=== PATIENT | male | born 1980 | race Caucasian/White ===

== ENCOUNTER → 2018-12-13 09:07 | Outpatient (CLI) | payer OTHER, SELFPAY ==
[2018-12-13 10:19] LABS: Hematocrit 43.1 % (41-53); Hemoglobin 14.8 g/dL (13.5-17.5); Mean Corpuscular HGB Conc 34.4 % (30-36); Mean Corpuscular Hemoglobin 30.7 PG (26-34); Mean Corpuscular Volume 89.3 fL (80-100); Platelet Count 204 X10^3/uL (150-400); Red Blood Cell Count 4.83 X10^6/uL (4.5-5.9); White Blood Cell Count 5.9 X10^3/uL (4.5-11.0)
[2018-12-13 10:37] LABS: Alanine Aminotransferase 31 IU/L (21-72); Albumin 4.5 g/dL (3.5-5.0); Albumin Globulin Ratio 1.5 (1.0-2.8); Alkaline Phosphatase 49 U/L (38-126); Aspartate Aminotransferase 36 IU/L (17-59); BUN Creatinine Ratio 20.9 (6-22); Bilirubin Total 0.7 mg/dL (0.2-1.3); Blood Urea Nitrogen 23 mg/dL (9-20); Calcium 9.3 mg/dL (8.4-10.2); Carbon Dioxide 27 mmol/L (22-32); Chloride 105 mmol/L (98-107); Cholesterol 180 mg/dL (140-199); Estimated Glomerular Filt Rate > 60.0 mL/min (>60); Glucose 91 mg/dL (70-100); HDL Cholesterol 47 mg/dL (40-60); HEMOLYSIS < 15 (0-50); LDL Cholesterol Calculated 108 mg/dL (<100); Sodium 140 mmol/L (137-145); Total Protein 7.5 g/dL (6.3-8.2); Triglycerides 124 mg/dL (35-150)
[2018-12-13 11:16] LABS: TSH w/ Reflex to FT4 2.93 uIU/mL (0.47-4.68)
== END ==
PROVIDERS: Visit Provider Nurse Practitioner Family
DX: Z00.00 Encounter for general adult medical examination without abnormal findings (principal); E04.9 Nontoxic goiter, unspecified; Z13.6 Encounter for screening for cardiovascular disorders
CPT/HCPCS: 36415; 80053; 80061; 84443; 85027

== ENCOUNTER → 2019-11-13 10:43 | Outpatient (CLI) | payer OTHER, SELFPAY ==
--- NOTE | 2019-11-13 10:45 | DI.RAD.S_ITS ---
PROCEDURE: XR ANKLE RT MIN 3V INDICATIONS: swelling/pain s/p inversion injury/R/o fracture TECHNIQUE: 3 views of the ankle were acquired. COMPARISON: None. FINDINGS: Bones: No fractures or dislocations. Ankle mortise is normally aligned. No suspicious bony lesions. Soft tissues: Trace tibiotalar joint effusion. Achilles tendon appears normal. Mild swelling over the lateral malleolus. IMPRESSION: No acute osseous abnormality. Mild swelling over the lateral malleolus. Dictated by: Joel Akhtar M.D. on 11/13/2019 at 11:40 Approved by: Joel Akhtar M.D. on 11/13/2019 at 11:43
== END ==
PROVIDERS: PCP Nurse Practitioner Family; Referring Provider Nurse Practitioner Family; Visit Provider Nurse Practitioner Family
DX: M25.571 Pain in right ankle and joints of right foot (principal); M25.471 Effusion, right ankle
CPT/HCPCS: 73610

== ENCOUNTER → 2020-07-13 13:16 | Outpatient (ROUT) | payer OTHER, SELFPAY ==
[2020-07-13 14:50] LABS: Semen Sperm Prescence Post-Vas Present (ABSENT)
== END ==
PROVIDERS: PCP Nurse Practitioner Family; Visit Provider Specialist
DX: Z98.52 Vasectomy status (principal)
CPT/HCPCS: 89321

== ENCOUNTER → 2020-07-13 13:18 | Outpatient (CLI) | payer OTHER, SELFPAY ==
[2020-07-13 14:37] LABS: Hemoglobin 13.9 g/dL (13.5-17.5); Mean Corpuscular HGB Conc 34.8 % (30-36); Mean Corpuscular Hemoglobin 31.2 PG (26-34); Mean Corpuscular Volume 89.5 fL (80-100); Platelet Count 191 X10^3/uL (150-400); Red Blood Cell Count 4.47 X10^6/uL (4.5-5.9); Red Cell Distribution Width 13.1 % (11.6-14.8); White Blood Cell Count 6.2 X10^3/uL (4.5-11.0)
[2020-07-13 14:47] LABS: Alanine Aminotransferase 28 IU/L (<50); Albumin 4.5 g/dL (3.5-5.0); Albumin Globulin Ratio 1.9 (1.0-2.8); Alkaline Phosphatase 55 U/L (38-126); Aspartate Aminotransferase 30 IU/L (17-59); BUN Creatinine Ratio 19.3 (6-22); Bilirubin Total 0.4 mg/dL (0.2-1.3); Blood Urea Nitrogen 22 mg/dL (9-20); Calcium 9.6 mg/dL (8.4-10.2); Carbon Dioxide 27 mmol/L (22-32); Chloride 104 mmol/L (98-107); Estimated Glomerular Filt Rate > 60.0 mL/min (>60); Globulin 2.4 g/dL (1.7-4.1); Glucose 91 mg/dL (70-100); HEMOLYSIS < 15 (0-50); Sodium 139 mmol/L (137-145); Total Protein 6.9 g/dL (6.3-8.2)
[2020-07-13 15:11] LABS: TSH w/ Reflex to FT4 2.17 uIU/mL (0.47-4.68)
== END ==
PROVIDERS: PCP Nurse Practitioner Family; Referring Provider Nurse Practitioner Family; Visit Provider Nurse Practitioner Family
DX: Z00.00 Encounter for general adult medical examination without abnormal findings (principal); E04.9 Nontoxic goiter, unspecified; Z98.52 Vasectomy status
CPT/HCPCS: 36415; 80053; 84443; 85027; 89321

== ENCOUNTER → 2020-08-17 14:13 | Outpatient (ROUT) | payer OTHER, SELFPAY ==
[2020-08-17 14:20] LABS: Semen Sperm Prescence Post-Vas Absent (ABSENT)
== END ==
PROVIDERS: PCP Nurse Practitioner Family; Visit Provider Specialist
DX: Z98.52 Vasectomy status (principal)
CPT/HCPCS: 89321

== ENCOUNTER → 2021-04-29 13:33 | Outpatient (CLI) | payer OTHER, SELFPAY ==
[2021-04-29 14:45] LABS: COVID19 -Nasal RAPID POSITIVE (Negative)
== END ==
PROVIDERS: PCP Nurse Practitioner Family; Referring Provider Nurse Practitioner Family; Visit Provider Nurse Practitioner Family
DX: U07.1 COVID-19 (principal); Z20.822 Contact with and (suspected) exposure to COVID-19
CPT/HCPCS: 87635

== ENCOUNTER → 2021-12-29 16:44 | Outpatient (CLI) | payer OTHER, SELFPAY ==
[2021-12-30 11:18] LABS: Urine N gonorrhoeae NOT DETECTED
[2021-12-30 12:05] LABS: Urine Chlamydia NOT DETECTED
== END ==
PROVIDERS: PCP Nurse Practitioner Family; Visit Provider Nurse Practitioner Family
DX: Z11.3 Encounter for screening for infections with a predominantly sexual mode of transmission (principal); Z72.51 High risk heterosexual behavior
CPT/HCPCS: 87491; 87591

== ENCOUNTER → 2021-12-29 17:25 | Outpatient (CLI) | payer OTHER, SELFPAY ==
[2021-12-30 16:44] LABS: Hepatitis B Surface Antigen NEGATIVE s/c (NEGATIVE)
[2021-12-30 17:08] LABS: HIV 1 & 2 Ab/Ag 4th Gen Combo NEGATIVE (NEGATIVE); Hep C Virus Ab w/Reflex Quant NEGATIVE s/c (NEGATIVE)
[2021-12-31 00:54] LABS: HSV 2 IGG AB < 0.91 index (0.00-0.90); HSV1IGG < 0.91 index (0.00-0.90)
[2021-12-31 04:55] LABS: RPR Screen Non Reactive (Non Reactive)
[2022-01-01 22:00] LABS: HSV I/II IgM <0.91 Ratio (0.00-0.90)
== END ==
PROVIDERS: Nurse Practitioner Family; PCP Nurse Practitioner Family; Referring Provider Nurse Practitioner Family; Visit Provider Nurse Practitioner Family
DX: Z00.00 Encounter for general adult medical examination without abnormal findings (principal); Z72.51 High risk heterosexual behavior; Z11.3 Encounter for screening for infections with a predominantly sexual mode of transmission
CPT/HCPCS: 36415; 86592; 86694; 86695; 86696; 86803; 87340; 87389; 87491; 87591

== ENCOUNTER → 2022-05-23 09:35 | Outpatient (CLI) | payer OTHER, SELFPAY ==
[2022-05-23 10:14] LABS: Hematocrit 47.9 % (41-53); Hemoglobin 16.6 g/dL (13.5-17.5)
[2022-05-23 10:58] LABS: Presystolic 136; Pulse 68
[2022-05-23 10:59] LABS: Prediastolic 74; Temperature 98.5
[2022-05-23 11:01] LABS: Amount Collected in g 501; Dizziness N; Postdiastolic BP 81; Postsystolic BP 129; Swelling N; Therapeutic Phleb Comment Y
== END ==
PROVIDERS: Referring Provider General Practice; Visit Provider General Practice
DX: E83.118 Other hemochromatosis (principal)
CPT/HCPCS: 36415; 85014; 85018; 99195

== ENCOUNTER → 2022-07-01 08:33 | Outpatient (CLI) | payer OTHER, SELFPAY ==
[2022-07-01 09:25] LABS: Add Manual Diff / Slide Review SLIDE REVIEW; Basophils Absolute Auto 0 /uL (0-100); Basophils Percent Auto 0.6 % (0-2); Eosinophils Absolute Auto 200 /uL (0-450); Eosinophils Percent Auto 2.1 % (2-4); Hematocrit 47.8 % (41-53); Hemoglobin 16.8 g/dL (13.5-17.5); Lymphocytes Absolute Auto 1500 /uL (1100-4500); Lymphocytes Percent Auto 19.8 % (25-40); Mean Corpuscular HGB Conc 35.2 % (30-36); Mean Corpuscular Hemoglobin 31.2 PG (26-34); Mean Corpuscular Volume 88.6 fL (80-100); Monocytes Absolute Auto 700 /uL (0-900); Neutrophils Absolute Auto 5000 /uL (1500-7000); Neutrophils Percent Auto 67.5 % (50-75); Platelet Count 171 X10^3/uL (150-400); White Blood Cell Count 7.4 X10^3/uL (4.5-11.0)
[2022-07-01 09:53] LABS: RBC Morphology Normal Morphology
[2022-07-01 12:15] LABS: Alanine Aminotransferase 28 IU/L (<50); Albumin 4.4 g/dL (3.5-5.0); Albumin Globulin Ratio 1.6 (1.0-2.8); Alkaline Phosphatase 45 U/L (38-126); Aspartate Aminotransferase 30 IU/L (17-59); BUN Creatinine Ratio 13.4 (6-22); Bilirubin Total 0.5 mg/dL (0.2-1.3); Blood Urea Nitrogen 16 mg/dL (9-20); Calcium 9.1 mg/dL (8.4-10.2); Carbon Dioxide 29 mmol/L (22-32); Chloride 102 mmol/L (98-107); Cholesterol 178 mg/dL (140-199); Estimated Glomerular Filt Rate > 60 mL/min (>60); Globulin 2.7 g/dL (1.7-4.1); Glucose 81 mg/dL (70-100); HDL Cholesterol 40 mg/dL (40-60); HEMOLYSIS < 15 (0-50); LDL Cholesterol Calculated 118 mg/dL (<100); Potassium 4.1 mmol/L (3.4-5.1); Sodium 140 mmol/L (137-145); Total Protein 7.1 g/dL (6.3-8.2); Triglycerides 99 mg/dL (35-150)
[2022-07-01 12:21] LABS: Free T4, Direct Thyroxine 1.05 ng/dL (0.78-2.19)
[2022-07-01 12:35] LABS: Thyroid Stimulating Hormone 6.51 uIU/mL (0.47-4.68)
== END ==
PROVIDERS: PCP Family Medicine; Referring Provider Family Medicine; Visit Provider Family Medicine
DX: Z13.29 Encounter for screening for other suspected endocrine disorder (principal); E04.9 Nontoxic goiter, unspecified; Z13.6 Encounter for screening for cardiovascular disorders; Z13.9 Encounter for screening, unspecified
CPT/HCPCS: 36415; 80053; 80061; 84439; 84443; 85025

== ENCOUNTER → 2022-11-02 15:24 | Outpatient (CLI) | payer OTHER, SELFPAY ==
[2022-11-02 17:05] LABS: HEMOLYSIS < 15 (0-50); Iron 85 ug/dL (49-181)
[2022-11-02 17:06] LABS: Basophils Absolute Auto 0 /uL (0-100); Basophils Percent Auto 0.5 % (0-2); Eosinophils Absolute Auto 200 /uL (0-450); Eosinophils Percent Auto 2.4 % (2-4); Hemoglobin 16.6 g/dL (13.5-17.5); Lymphocytes Absolute Auto 1500 /uL (1100-4500); Lymphocytes Percent Auto 23.1 % (25-40); Mean Corpuscular HGB Conc 35.4 % (30-36); Mean Corpuscular Hemoglobin 31.4 PG (26-34); Mean Corpuscular Volume 88.8 fL (80-100); Monocytes Absolute Auto 700 /uL (0-900); Monocytes Percent Auto 10.7 % (3-14); Neutrophils Absolute Auto 4000 /uL (1500-7000); Neutrophils Percent Auto 63.3 % (50-75); Red Blood Cell Count 5.29 X10^6/uL (4.5-5.9); Red Cell Distribution Width 13.3 % (11.6-14.8); White Blood Cell Count 6.4 X10^3/uL (4.5-11.0)
[2022-11-02 17:08] LABS: Alanine Aminotransferase 52 IU/L (<50); Albumin 4.3 g/dL (3.5-5.0); Albumin Globulin Ratio 1.5 (1.0-2.8); Alkaline Phosphatase 49 U/L (38-126); Aspartate Aminotransferase 41 IU/L (17-59); BUN Creatinine Ratio 15.6 (6-22); Bilirubin Total 0.5 mg/dL (0.2-1.3); Blood Urea Nitrogen 19 mg/dL (9-20); Carbon Dioxide 27 mmol/L (22-32); Chloride 102 mmol/L (98-107); Estimated Glomerular Filt Rate > 60 mL/min (>60); Globulin 2.9 g/dL (1.7-4.1); Glucose 103 mg/dL (70-100); HEMOLYSIS < 15 (0-50); Potassium 3.7 mmol/L (3.4-5.1); Sodium 137 mmol/L (137-145); Total Protein 7.2 g/dL (6.3-8.2)
[2022-11-02 17:21] LABS: Percent Iron Saturation 25 % (20-50); Total Iron Binding Capacity 346 ug/dL (261-462); Transferrin 252 mg/dL (206-381)
[2022-11-02 17:39] LABS: Add Manual Diff / Slide Review SLIDE REVIEW; Prostate Specific Antigen 0.861 ng/mL (0.10-4.00)
[2022-11-02 17:41] LABS: RBC Morphology Normal Morphology
[2022-11-02 17:42] LABS: Platelet Count 174 X10^3/uL (150-400)
== END ==
PROVIDERS: PCP Family Medicine; Referring Provider Family Medicine; Visit Provider Family Medicine
DX: Z00.00 Encounter for general adult medical examination without abnormal findings (principal); D75.1 Secondary polycythemia; E34.9 Endocrine disorder, unspecified
CPT/HCPCS: 36415; 80053; 83540; 83550; 84153; 85025

== ENCOUNTER → 2023-01-02 14:05 | Outpatient (CLI) | payer OTHER, SELFPAY ==
[2023-01-02 14:58] LABS: Free T4, Direct Thyroxine 1.25 ng/dL (0.78-2.19)
[2023-01-02 15:12] LABS: Thyroid Stimulating Hormone 1.63 uIU/mL (0.47-4.68)
== END ==
PROVIDERS: PCP Family Medicine; Referring Provider Family Medicine; Visit Provider Family Medicine
DX: E03.9 Hypothyroidism, unspecified (principal)
CPT/HCPCS: 36415; 84439; 84443

== ENCOUNTER → 2023-01-03 16:53 | Outpatient (CLI) | payer OTHER, SELFPAY ==
[2023-01-03 17:26] LABS: Add Manual Diff / Slide Review NO; Basophils Absolute Auto 100 /uL (0-100); Basophils Percent Auto 0.6 % (0-2); Eosinophils Absolute Auto 100 /uL (0-450); Eosinophils Percent Auto 1.5 % (2-4); Hematocrit 46.7 % (41-53); Hemoglobin 16.4 g/dL (13.5-17.5); Lymphocytes Absolute Auto 1700 /uL (1100-4500); Lymphocytes Percent Auto 17.8 % (25-40); Mean Corpuscular HGB Conc 35.2 % (30-36); Mean Corpuscular Hemoglobin 31.5 PG (26-34); Mean Corpuscular Volume 89.7 fL (80-100); Monocytes Absolute Auto 700 /uL (0-900); Monocytes Percent Auto 7.3 % (3-14); Neutrophils Absolute Auto 6900 /uL (1500-7000); Neutrophils Percent Auto 72.8 % (50-75); Platelet Count 186 X10^3/uL (150-400); Red Cell Distribution Width 13.7 % (11.6-14.8); White Blood Cell Count 9.5 X10^3/uL (4.5-11.0)
[2023-01-03 17:41] LABS: Alanine Aminotransferase 38 IU/L (<50); Albumin 4.4 g/dL (3.5-5.0); Albumin Globulin Ratio 1.5 (1.0-2.8); Alkaline Phosphatase 47 U/L (38-126); Aspartate Aminotransferase 39 IU/L (17-59); Bilirubin Total 0.7 mg/dL (0.2-1.3); Blood Urea Nitrogen 20 mg/dL (9-20); Calcium 9.5 mg/dL (8.4-10.2); Carbon Dioxide 25 mmol/L (22-32); Chloride 104 mmol/L (98-107); Estimated Glomerular Filt Rate > 60 mL/min (>60); Globulin 2.9 g/dL (1.7-4.1); Glucose 123 mg/dL (70-100); HEMOLYSIS 28 (0-50); Potassium 3.8 mmol/L (3.4-5.1); Sodium 138 mmol/L (137-145); Total Protein 7.3 g/dL (6.3-8.2)
[2023-01-03 17:43] LABS: Hemoglobin A1C% w Est Avg Glu 4.4 % (4.0-6.0)
[2023-01-03 18:00] LABS: Free T4, Direct Thyroxine 1.27 ng/dL (0.78-2.19)
[2023-01-03 18:12] LABS: Prostate Specific Antigen 1.06 ng/mL (0.10-4.00)
[2023-01-09 10:08] LABS: Percent Free Testosterone 3.95 % (1.50-4.20); Testosterone Free 29.63 ng/dL (5.00-21.00)
== END ==
PROVIDERS: PCP Family Medicine; Referring Provider Family Medicine; Visit Provider Family Medicine
DX: D57.1 Sickle-cell disease without crisis (principal); E83.119 Hemochromatosis, unspecified; E34.9 Endocrine disorder, unspecified; E03.9 Hypothyroidism, unspecified
CPT/HCPCS: 36415; 80053; 83036; 84153; 84402; 84403; 84439; 84443; 85025

== ENCOUNTER → 2023-01-06 08:24 | Outpatient (CLI) | payer OTHER, SELFPAY ==
--- NOTE | 2023-01-06 09:30 | DI.CT.S_ITS ---
PROCEDURE: CT ABDOMEN PELVIS WO CON INDICATIONS: Evaluate assess umbilical hernia and potential extension TECHNIQUE: Noncontrast 5 mm thick sections acquired from the diaphragms to the symphysis. 5 mm coronal and sagittal reformats were then performed. For radiation dose reduction, the following was used: automated exposure control, adjustment of mA and/or kV according to patient size. COMPARISON: None. FINDINGS: Image quality: Excellent. ABDOMEN: Lung bases: Lung bases are clear. Heart size is normal. Solid organs: Liver is normal in size. Gallbladder is unremarkable . Pancreas is normal in contours. Spleen is normal in size. No adrenal nodules. Kidneys are normal in size, without hydronephrosis or nephrolithiasis. Peritoneum and bowel: Unenhanced bowel loops demonstrate normal wall thickness and caliber. No free fluid or air. Nodes and vessels: No retroperitoneal or mesenteric adenopathy by size criteria. Aorta and inferior vena cava are normal in caliber. Miscellaneous: Fat containing umbilical hernia. The neck measures 1.7 centimeters. The sac measures 2.0 x 2.5 centimeters. PELVIS: Genitourinary: Bladder wall thickness is normal. Miscellaneous: No inguinal hernias or adenopathy. Bones: No suspicious bony lesions. No vertebral body compression fractures. IMPRESSION: Fat containing umbilical hernia. The neck measures 1.7 centimeters. The sac measures 2.0 x 2.5 centimeters. No additional hernia is present, and may be reduced. Dictated by: Ramana Baires M.D. on 01/06/2023 at 9:43 Approved by: Ramana Baires M.D. on 01/06/2023 at 9:51
== END ==
PROVIDERS: PCP Family Medicine; Referring Provider Family Medicine; Visit Provider Family Medicine
DX: K42.9 Umbilical hernia without obstruction or gangrene (principal)
CPT/HCPCS: 74176

== ENCOUNTER 2023-03-15 08:18 | Day surgery (SDC) | payer OTHER, SELFPAY ==
[2023-03-13 13:37] VITALS: BMI 28.2
[2023-03-15] VITALS (10 sets, daily range): BP systolic 129–164; BP diastolic 81–103; PULSE 76–93; RESP 10–16; TEMP 36.6–36.8; O2SAT 97–99; BMI 28.2
[2023-03-15] MEDS: LACTATED RINGERS 1,000 ML 42 ML IV ×2 (08:46→11:18)
--- NOTE | 2023-03-15 09:42 | P.HP_ITS ---
History of Present Illness History of Present Illness Date Patient Seen: 03/15/23 Chief complaint: Hernia Repair - Umbilical Narrative: 43M with a symptomatic umbilical hernia here for elective repair. No interval change in health please refer to H&P from January for further detail. [facility] Medical History (Updated 03/13/23 @ 13:38 by Nora Concepcion RN) Former smoker GERD (gastroesophageal reflux disease) Hemochromatosis Polycythemia Hypotestosteronism Hypothyroidism Encounter for wellness examination in adult (07/29/20) Sterilization consult Gluten intolerance Witnessed apneic spells Surgical History Anesthesia History of tonsillectomy Family History Sister Celiac disease Sister Fibromyalgia Grandfather Cancer Grandmother Alzheimer's disease Grandmother Colon cancer Social History marital status: number of children: 3 household members: children occupational status: employed Smoking Status: Former smoker Tobacco: How many years used: 10 second hand exposure: No alcohol intake: current substance use type: does not use caffeine: Yes Meds Home Medications and Allergies Home Medications Medication Instructions Recorded Confirmed Type anastrozole 1 mg tablet 0.25 mg PO 2XW 07/05/22 03/15/23 History levothyroxine 50 mcg capsule 50 mcg PO DAILY #90 caps 01/09/23 03/15/23 Rx boron citrate 3 mg tablet 3 mg PO DAILY 03/13/23 03/15/23 History cholecalciferol (vitamin D3) 125 250 mcg PO DAILY 03/13/23 03/15/23 History mcg (5,000 unit) tablet (Vitamin D3) iodine 150 mcg tablet 1,000 mcg PO DAILY 03/13/23 03/15/23 History multivitamin with minerals-folic 2 tab PO DAILY 03/13/23 03/15/23 History acid 200 mcg chewable tablet (Multivitamin Gummies) testosterone cypionate 200 mg/mL 100 mg IM Q2W 03/13/23 03/15/23 History intramuscular kit vitamin K2 100 mcg capsule 100 mcg PO DAILY 03/13/23 03/15/23 History gonadorelin acetate 0.8 mg 0.8 mg DAILY 03/15/23 03/15/23 History injection kit Allergies Allergy/AdvReac Type Severity Reaction Status Date / Time No Known Drug Allergies Allergy Verified 02/09/23 15:04 Exam Vital Signs (past 8 hours): - 03/15/23 08:23 Temperature 97.9 F Pulse Rate 78 Respiratory Rate 16 Blood Pressure 129/81 Pulse Oximetry 99 Oxygen Delivery Method Room Air Oxygen Delivery Method Room Air Narrative Exam Narrative: Gen-Adult man alert and oriented. Abdomen-Reducible umbilcial hernia Assessment & Plan Assessment & Plan narrative: 43M with a symptomatic umbilical hernia here for elective repair. Overview of operation discussed. Major operative risks again reviewed including hemorrhage, infection reoccurence. He provides written and verbal consent to proceed.
[2023-03-15] MEDS: CEFAZOLIN 2 GM/100 ML PREMIX 100 ML IV (10:00)
--- NOTE | 2023-03-15 10:09 | SUR.OPER ---
Supine on padded OR bed, head on pillow, arms secured on padded arm boards at <90 degrees abduction, legs uncrossed, safety belt at thigh, tape over blanket over lower legs.
[2023-03-15] MEDS: BUPIVACAINE 0.25% (PF) VIAL 30 ML INJ (10:20)
[2023-03-15] MEDS: ACETAMINOPHEN 325 MG TABLET 975 MG PO (11:17)
[2023-03-15] MEDS: OXYCODONE IR 5 MG TABLET PO ×2 (11:17→11:42)
--- NOTE | 2023-03-15 11:26 | P.OP_ITS ---
Operative Date/Time/Diagnoses Date of procedure: 03/15/23 Time of procedure: 11:26 Pre-op diagnosis: umbilical hernia Post-op diagnosis: same Procedure & Clinicians Procedure: Umbilical hernia repair Same procedure as scheduled: Yes Indications: Symptomatic reducible umbilical hernia Surgeon: Sterling Godoy Click Yes if Unassisted: No Anesthesia Type: General Operative Notes Findings: 3 cm fascial defect containing viable omentum Specimen(s): none sent Estimated Blood Loss (mL): 40 Procedure in detail: Patient was brought to the operating room placed supine on the table. Bilateral lower extremity compression devices were applied. General anesthesia was induced and they were intubated with an endotracheal tube. They received 2 g of Ancef prior to skin incision. They were prepped and draped in sterile fashion. A time-out was performed. A curvilinear incision was made inferior to the u mbilicus. The subcutaneous tissues were divided. The umbilical hernia was identified and the hernia sac was dissected off the umbilical skin and circumferentially off of the fascia defect. The hernia sac was sharply opened and contained viable omentum. The omentum was reduced back into the abdomen. Using blunt dissection I carefully carefully freed the hernia sac from beneath the fascia defect in order to accomodate the mesh. The fascia defect was 3cm in maximal diameter. A Bard Ventralex ST hernia patch 6.4 cm was inserted beneath the fascia defect and above the peritoneum in a sublay position. The mesh was anchored in multiple locations using Ethibond suture to the fascia and the fascial defect was closed over the mesh. The umbilical skin was tacked to the subcutaneous tissues and then the remainder of the subcutaneous tissues were reapproximated using 3 0 Vicry,l skin closed with 4 0 Monocryl followed by the application of Dermabond and Steri-Strips. Sponge instrument count at the end of the operation was correct. Patient tolerated procedure well was extubated and transferred to postoperative care unit in stable condition. Complications: none Post-operative Condition: stable Disposition: same day surgery
[2023-03-15] MEDS: HYDROMORPHONE 1 MG INJ IV ×2 (11:30→11:35)
[2023-03-15] MEDS: ONDANSETRON 4 MG/2 ML INJ IV (11:42)
== END 2023-03-15 12:26 | disposition home or self-care (01) ==
PROVIDERS: PCP Family Medicine; Referring Provider Surgery; Visit Provider Surgery
PROC: (CPT 49593; principal; 2023-03-15 09:45)
DX: K42.9 Umbilical hernia without obstruction or gangrene (principal)
CPT/HCPCS: 49593; J0690; J1100; J1170; J1885; J2250; J2405; J3010

== ENCOUNTER → 2023-08-22 06:45 | Outpatient (CLI) | payer OTHER, SELFPAY ==
[2023-08-22 08:02] LABS: Add Manual Diff / Slide Review NO; Basophils Absolute Auto 0 /uL (0-100); Basophils Percent Auto 0.9 % (0-2); Eosinophils Absolute Auto 300 /uL (0-450); Eosinophils Percent Auto 5.8 % (2-4); Hematocrit 47.8 % (41-53); Hemoglobin 16.7 g/dL (13.5-17.5); Lymphocytes Absolute Auto 1400 /uL (1100-4500); Lymphocytes Percent Auto 24.6 % (25-40); Mean Corpuscular HGB Conc 34.8 % (30-36); Mean Corpuscular Hemoglobin 31.5 PG (26-34); Mean Corpuscular Volume 90.3 fL (80-100); Monocytes Absolute Auto 400 /uL (0-900); Monocytes Percent Auto 7.3 % (3-14); Neutrophils Absolute Auto 3500 /uL (1500-7000); Neutrophils Percent Auto 61.4 % (50-75); Platelet Count 183 X10^3/uL (150-400); Red Cell Distribution Width 13.1 % (11.6-14.8); White Blood Cell Count 5.7 X10^3/uL (4.5-11.0)
[2023-08-22 08:04] LABS: Hemoglobin A1C% w Est Avg Glu 4.8 % (4.0-6.0)
[2023-08-22 08:27] LABS: Alanine Aminotransferase 45 IU/L (<50); Albumin 4.5 g/dL (3.5-5.0); Albumin Globulin Ratio 1.6 (1.0-2.8); Alkaline Phosphatase 57 U/L (38-126); Aspartate Aminotransferase 39 IU/L (17-59); BUN Creatinine Ratio 17.2 (6-22); Bilirubin Total 0.6 mg/dL (0.2-1.3); Blood Urea Nitrogen 22 mg/dL (9-20); Calcium 9.3 mg/dL (8.4-10.2); Carbon Dioxide 28 mmol/L (22-32); Chloride 104 mmol/L (98-107); Estimated Glomerular Filt Rate > 60 mL/min (>60); Globulin 2.9 g/dL (1.7-4.1); Glucose 96 mg/dL (70-100); HEMOLYSIS < 15 (0-50); Potassium 4.4 mmol/L (3.4-5.1); Sodium 139 mmol/L (137-145); Total Protein 7.4 g/dL (6.3-8.2)
[2023-08-22 08:38] LABS: Free T4, Direct Thyroxine 1.16 ng/dL (0.78-2.19)
[2023-08-22 08:52] LABS: Thyroid Stimulating Hormone 1.38 uIU/mL (0.47-4.68)
[2023-08-22 08:53] LABS: Prostate Specific Antigen 1.17 ng/mL (0.10-4.00)
== END ==
LOC: LAB 06:45
PROVIDERS: PCP Family Medicine; Referring Provider Family Medicine; Visit Provider Family Medicine
DX: E03.9 Hypothyroidism, unspecified (principal); E34.9 Endocrine disorder, unspecified; R73.9 Hyperglycemia, unspecified
CPT/HCPCS: 36415; 80053; 83036; 84153; 84402; 84403; 84439; 84443; 85025

== ENCOUNTER → 2023-11-29 10:48 | Outpatient (CLI) | payer OTHER, SELFPAY ==
--- NOTE | 2023-11-29 10:49 | DI.RAD.S_ITS ---
PROCEDURE: XR CHEST 2V INDICATIONS: Cough TECHNIQUE: 2 views of the chest were acquired. COMPARISON: None. FINDINGS: Surgical changes and devices: None. Lungs and pleura: Increased bronchovascular markings in bilateral hilar region are seen with mild bronchial wall thickening. No definite focal infiltrate. No pleural effusions or pneumothorax. Mediastinum: Mediastinal contours are normal. Heart size is normal. Bones and chest wall: No suspicious bony abnormalities. Soft tissues appear unremarkable. IMPRESSION: Finding is concerning for mild reactive airway disease such as bronchiolitis or viral illness. No definite focal infiltrate. No pleural effusion or pneumothorax. Dictated by: John Oden M.D. on 11/29/2023 at 16:28 Approved by: John Oden M.D. on 11/29/2023 at 16:29
== END ==
PROVIDERS: PCP Family Medicine; Referring Provider Nurse Practitioner Family; Visit Provider Nurse Practitioner Family
DX: R05.9 Cough, unspecified (principal)
CPT/HCPCS: 71046

== ENCOUNTER → 2024-04-29 07:34 | Outpatient (CLI) | payer BC, SELFPAY ==
[2024-04-29 09:06] LABS: COVID-19 CEPHEID 4-PLEX PCR Negative (Negative); Influenza A - CEPHEID Flu A NEGATIVE (NEGATIVE); Influenza B - CEPHEID Flu B NEGATIVE (NEGATIVE); Respiratory Syncytial Virus Negative (Negative)
== END ==
PROVIDERS: PCP Family Medicine; Referring Provider Registered Nurse; Visit Provider Registered Nurse
DX: R05.1 Acute cough (principal)
CPT/HCPCS: 0241U; 87070

== ENCOUNTER → 2024-06-12 12:38 | Outpatient (CLI) | payer BC, SELFPAY ==
[2024-06-12 13:00] LABS: Add Manual Diff / Slide Review NO; Basophils Absolute Auto 0 /uL (0-100); Basophils Percent Auto 0.5 % (0-2); Eosinophils Absolute Auto 100 /uL (0-450); Eosinophils Percent Auto 1.9 % (2-4); Hematocrit 48.3 % (41-53); Hemoglobin 16.6 g/dL (13.5-17.5); Lymphocytes Absolute Auto 1600 /uL (1100-4500); Lymphocytes Percent Auto 26.9 % (25-40); Mean Corpuscular HGB Conc 34.3 % (30-36); Mean Corpuscular Hemoglobin 30.9 PG (26-34); Mean Corpuscular Volume 90.1 fL (80-100); Monocytes Absolute Auto 400 /uL (0-900); Monocytes Percent Auto 7.4 % (3-14); Neutrophils Absolute Auto 3700 /uL (1500-7000); Neutrophils Percent Auto 63.3 % (50-75); Platelet Count 168 X10^3/uL (150-400); Red Blood Cell Count 5.36 X10^6/uL (4.5-5.9); White Blood Cell Count 5.9 X10^3/uL (4.5-11.0)
[2024-06-12 13:34] LABS: Alanine Aminotransferase 44 IU/L (<50); Albumin Globulin Ratio 1.7 (1.0-2.8); Alkaline Phosphatase 51 U/L (38-126); Aspartate Aminotransferase 40 IU/L (17-59); Bilirubin Total 0.6 mg/dL (0.2-1.3); Blood Urea Nitrogen 20 mg/dL (9-20); Calcium 9.5 mg/dL (8.4-10.2); Carbon Dioxide 27 mmol/L (22-32); Chloride 102 mmol/L (98-107); Cholesterol 205 mg/dL (140-199); Estimated Glomerular Filt Rate > 60 mL/min (>60); Glucose 121 mg/dL (70-100); HDL Cholesterol 39 mg/dL (40-60); HEMOLYSIS < 15 (0-50); LDL Cholesterol Calculated 116 mg/dL (<100); Potassium 3.9 mmol/L (3.4-5.1); Sodium 139 mmol/L (137-145); Triglycerides 248 mg/dL (35-150)
[2024-06-12 14:04] LABS: Prostate Specific Antigen 0.894 ng/mL (0.10-4.00)
[2024-06-12 15:05] LABS: Free T4, Direct Thyroxine 1.32 ng/dL (0.78-2.19)
== END ==
PROVIDERS: PCP Family Medicine; Referring Provider Family Medicine; Visit Provider Family Medicine
DX: R73.9 Hyperglycemia, unspecified (principal); E03.9 Hypothyroidism, unspecified; E34.9 Endocrine disorder, unspecified; E04.9 Nontoxic goiter, unspecified
CPT/HCPCS: 36415; 80053; 80061; 84153; 84402; 84403; 84439; 84443; 85025